=== PATIENT | female | born 1985 | race Caucasian/White ===

== ENCOUNTER 2017-02-14 08:00 | Day surgery (SDC) | payer BC ==
[~2017-02-14 08:00] MED LIST: Lactated Ringers 1,000 ML IV SCH; Sodium Chloride 0.9% 10 ML Syringe FLUSH PRN
[2017-02-14] MEDS ORDERED: Propofol 200 MG/20 ML SDV ONE ×2 (08:28→09:07)
[2017-02-14] MEDS ORDERED: fentaNYL 250 MCG/5 ML SDV ONE ×2 (08:28→09:07)
[2017-02-14] MEDS ORDERED: Midazolam 1 MG/ML 2 ML SDV ONE ×2 (08:28→09:07)
[2017-02-14] MEDS ORDERED: Albuterol/Ipratropium 3.0-0.5 MG/3 ML Neb Soln NEB ONE (08:49)
[2017-02-14] MEDS ORDERED: Succinylcholine 200 MG/10 ML MDV ONE (09:07)
[2017-02-14] MEDS ORDERED: fentaNYL 100 MCG/2 ML SDV ONE ×2 (09:07→10:06)
[2017-02-14] MEDS ORDERED: Dexamethasone 10 MG/ML SDV ONE (09:07)
[2017-02-14] MEDS ORDERED: Glycopyrrolate 0.2 MG/ML SDV ONE (09:07)
[2017-02-14] MEDS ORDERED: Rocuronium 100 MG/10 ML MDV ONE (09:07)
[2017-02-14] MEDS ORDERED: Ondansetron 4 MG/2 ML SDV ONE (09:07)
--- NOTE | 2017-02-14 09:15 | PCM.HPR ---
H & P Addendum review - H & P Addendum Review Date of Original H & P: 01/17/17 Date Reviewed: 02/14/17 Time Reviewed: 09:00 Patient was Examined: No Changes
[2017-02-14] MEDS ORDERED: Neostigmine Methylsulfate 1 MG/ML 5 ML Syringe ONE (09:30)
--- NOTE | 2017-02-14 09:41 | PCM.OPNOTE ---
- General Post-Op/Procedure Note Date of Surgery/Procedure: 02/14/17 Operative Procedure(s): Tonsillectomy Pre Op Diagnosis: Chronic Tonsillitis Post-Op Diagnosis: Same Anesthesia Technique: General ET Tube Primary Surgeon: Josiah Garcia Anesthesia Provider: Linn Henry Pathology: Tonsils EBL in mLs: 1 Condition: Good
[2017-02-14] MEDS ORDERED: Acetaminophen/HYDROcodone 325-10 MG Tab PO ONE (11:24)
[2017-02-14 15:54] VITALS: BP 108/67
--- NOTE | 2017-02-15 08:47 | OR ---
Date of Procedure: 02/14/2017 PREOPERATIVE DIAGNOSIS: Chronic tonsillitis. POSTOPERATIVE DIAGNOSIS: Chronic tonsillitis. PROCEDURE: Tonsillectomy. ANESTHESIA: General. PROCEDURE IN DETAIL: The patient was brought to the operating room where general endotracheal anesthesia was administered. The oral gag retractor was placed. The tonsils were small and shrunken with no acute inflammation today. The right tonsil was grasped and retracted towards the midline. Electrocautery was used to dissect along its muscular plane, removing it without difficulty. Minimal oozing was controlled with electrocautery. The left tonsil was smaller and more easily removed and did not have any bleeding. Both surgical sites were thoroughly inspected and remained hemostatic. Retractor was released and removed. Patient was extubated and returned to recovery in stable condition. ESTIMATED BLOOD LOSS: 1 mL. HERB PIMENTEL MD /[id number]
== END 2017-02-14 13:40 | disposition home or self-care (01) ==
LOC: LL.SDS 08:00
PROVIDERS: ATTEND Surgery
DX: J35.1 Hypertrophy of tonsils (principal); F17.210 Nicotine dependence, cigarettes, uncomplicated; Z98.890 Other specified postprocedural states
CPT/HCPCS: 42826; 81025; 94640; A9270; J0330; J1100; J2250; J2405; J2704; J3010; J7120; J2710